=== PATIENT | male | born 1940 | race Caucasian/White ===

== ENCOUNTER 2023-08-03 03:40 | Inpatient (IN) | payer OTHER, MEDICAID ==
[~2023-08-03] VITALS: Ht 157.5 cm; Wt 65.5 kg
[2023-08-03] VITALS (11 sets, daily range): BP systolic 92–140; BP diastolic 67–85; PULSE 103–139; RESP 18–35; TEMP 97.8–99.3
[2023-08-03] MEDS ORDERED: ALBUTEROL (0.083%) 2.5MG/3ML NEB HHN STA (03:59)
[2023-08-03] MEDS ORDERED: IPRATROPIUM BROMIDE (0.02%) 0.5MG/2.5ML NEB HHN STA (03:59)
[2023-08-03 04:24] LABS: BASOPHILS % 0.9 % (0.0-2.0); EOSINOPHILS % 0.9 % (0.0-5.0); HEMATOCRIT. 39.7 % (42.0-52.0); LYMPHOCYTES % 14.3 % (20.0-50.0); MEAN CORPUSCULAR HEMOGLOBIN 29.2 pg (28.0-32.0); MEAN CORPUSCULAR HGB CONC 32.8 g/dL (31.0-37.0); MEAN PLATELET VOLUME 7.9 fl (7.4-10.4); MONOCYTES % 10.2 % (2.0-8.0); NEUTROPHILS % 73.7 % (40.0-76.0); PLATELET 292 x1000/uL (130-400); RED BLOOD CELL COUNT 4.46 mill/uL (4.7-6.1); RED CELL DISTRIBUTION WIDTH 14.7 % (11.6-14.6); WHITE BLOOD COUNT 16.9 x1000/uL (4.5-11.0)
[2023-08-03 04:34] LABS: CHLORIDE 106 mEq/L (98-107); INDEX HEMOLYSI 2 (1-3); INDEX ICTERIC 1 (1-4); INDEX LIPEMIC 1 (1-3); POTASSIUM 4.1 mEq/L (3.5-5.1); SODIUM 133 mEq/L (136-145)
[2023-08-03] MEDS ORDERED: VANCOMYCIN 1G PREMIX 200 ML IV NR ×2 (05:00→14:30)
[2023-08-03] MEDS ORDERED: PIPERACILLIN/TAZOBACTAM 3.375GM/50ML PREMIX IV NR (05:00)
[2023-08-03 05:20] LABS: INR 0.9; PROTHROMBIN TIME 10.2 sec (9.6-11.0)
[2023-08-03 05:22] LABS: ALANINE AMINOTRANSFERASE 30 IU/L (13-61); ALBUMIN 3.4 g/dL (3.4-5.0); ASPARTATE AMINOTRANSFERASE 20 IU/L (15-37); BILIRUBIN TOTAL 0.5 mg/dL (0.1-1.0); CALCIUM 8.4 mg/dL (8.5-10.1); CARBON DIOXIDE 26 mEq/L (21-32); ETHANOL BLOOD < 10 mg/dL (-10); GLUCOSE 267 mg/dL (70-105); NT PRO B-TYPE NATRIURETIC PEP 1206 pg/mL (5-125); PROTEIN TOTAL 7.6 g/dL (6.0-8.3); UREA NITROGEN BLOOD 20 mg/dL (7-21)
[2023-08-03 05:25] LABS: TROPONIN I HIGH SENSITIVITY 188 ng/L (<78)
[2023-08-03 05:34] LABS: LACTATE DEHYDROGENASE 247 IU/L (100-240)
[2023-08-03] MEDS ORDERED: ONDANSETRON HCL 4MG/2ML INJ IV PRN (12:00)
[2023-08-03] MEDS ORDERED: DEXTROSE 50% WATER 50ML SYRINGE IV PRN (12:00)
[2023-08-03] MEDS ORDERED: ACETAMINOPHEN 325MG TABLET PO PRN (12:00)
[2023-08-03] MEDS ORDERED: FUROSEMIDE 40MG/4ML VIAL IVP NR (12:00)
[2023-08-03 13:08] LABS: BG BASE EXCESS -2.9 mmol/L (-2.0-2.0); BG CARBOXYHEMOGLOBIN 0.6 % (0.5-1.5); BG DEOXYHEMOGLOBIN 0.8 % (0.0-5.0); BG HCO3 ACT 21.7 mmol/L (22.0-26.0); BG METHEMOGLOBIN 0.5 % (0.0-1.5); BG OXYGEN SATURATION 99.2 % (92.0-98.5); BG OXYHEMOGLOBIN 98.1 % (94.0-97.0); BG PCO2 37.1 mmHg (35.0-45.0); BG PH 7.384 (7.350-7.450); BG PO2 144.2 mmHg (75.0-100.0); BG SAMPLE SITE RIGHT RADIAL; BG TOTAL HEMOGLOBIN 13.9 g/dL (12.0-18.0); BG VENT MODE MASK - BIPAP
[2023-08-03] MEDS: IPRATROPIUM/ALBUTEROL 0.5-3(2.5)MG/3ML NEB HHN SCH ×2 (13:17→21:03)
[2023-08-03] MEDS: INSULIN LISPRO 100 UNITS/ML SUBCUT SCH ×3 (13:20→21:00)
[2023-08-03] MEDS: BLOOD SUGAR DIAGNOSTIC STRIP TEST SCH ×4 (13:26→21:00)
[2023-08-03] MEDS: ENOXAPARIN 40MG/0.4ML SYR SUBCUT SCH (13:27)
[2023-08-03] MEDS ORDERED: PIPERACILLIN/TAZOBACTAM 3.375 G in DEXTROSE 5% WATER 50 ML IV SCH (14:00)
[2023-08-03] MEDS ORDERED: PIPERACILLIN/TAZ 3.375G PREMIX 50 ML IV NR (15:00)
[2023-08-03] MEDS ORDERED: IPRATROPIUM/ALBUTEROL 0.5-3(2.5)MG/3ML NEB HHN PRN (16:15)
[2023-08-03 20:01] LABS: CLARITY URINE CLEAR (CLEAR); COLOR URINE YELLOW (YELLOW); GLUCOSE URINE 1+ (NEGATIVE); KETONES URINE NEGATIVE (NEGATIVE); LEUKOCYTE ESTERASE URINE NEGATIVE (NEGATIVE); NITRITE URINE NEGATIVE (NEGATIVE); OCCULT BLOOD URINE NEGATIVE (NEGATIVE); PROTEIN URINE NEGATIVE (NEGATIVE); SPECIFIC GRAVITY URINE 1.011 (1.005-1.030); UROBILINOGEN URINE 0.2 E.U./dL (0.2-1.0)
[2023-08-03 20:17] LABS: *AMPHETAMINES SCREEN URINE NEGATIVE (NEGATIVE); *BARBITURATES SCREEN URINE NEGATIVE (NEGATIVE); *BENZODIAZEPINES SCREEN URINE NEGATIVE (NEGATIVE); *COCAINE SCREEN URINE NEGATIVE (NEGATIVE); CANNABINOID URINE SCREEN NEGATIVE (NEGATIVE); ECSTASY MDMA SCREEN URINE NEGATIVE (NEGATIVE); METHADONE URINE SCREEN NEGATIVE (NEGATIVE); OPIATES URINE SCREEN NEGATIVE (NEGATIVE); PHENCYCLIDINE URINE SCREEN NEGATIVE (NEGATIVE)
[2023-08-03 20:21] LABS: BACTERIA URINE NONE SEEN; RBC URINE NONE SEEN /hpf (0-2); SQUAMOUS EPITHELIAL CELL URINE NONE SEEN /lpf (RARE/1+); WBC URINE 0-2 /hpf (0-2)
[2023-08-03 21:43] LABS: TROPONIN I HIGH SENSITIVITY 156 ng/L (<78)
[2023-08-03] MEDS ORDERED: GLIP10TA10 PO (22:04)
[2023-08-03] MEDS ORDERED: SITA100T11 MT (22:04)
[2023-08-03] MEDS ORDERED: TAMS-11 MT (22:04)
[2023-08-03] MEDS ORDERED: OMEP20CA14 MT (22:04)
[2023-08-03] MEDS ORDERED: AMLO-372 PO (22:04)
[2023-08-03] MEDS ORDERED: METF-874 MT (22:04)
[2023-08-03] MEDS ORDERED: ASPI-1406 PO (22:04)
[2023-08-03] MEDS ORDERED: CARV6.2548 MT (22:04)
[2023-08-03] MEDS: CARVEDILOL 6.25 MG TABLET PO SCH (23:19)
[2023-08-03] MEDS: AMLODIPINE 10MG TABLET PO SCH (23:19)
[2023-08-03] MEDS: PIPERACILLIN/TAZOBACTAM 3.375 G in DEXTROSE 5% WATER 50 ML IV SCH (23:19)
[2023-08-04] VITALS (17 sets, daily range): BP systolic 97–128; BP diastolic 41–67; PULSE 85–118; RESP 15–28; TEMP 98.1–99.3
[2023-08-04] MEDS: IPRATROPIUM/ALBUTEROL 0.5-3(2.5)MG/3ML NEB HHN SCH ×4 (00:34→20:31)
[2023-08-04] MEDS: PIPERACILLIN/TAZOBACTAM 3.375 G in DEXTROSE 5% WATER 50 ML IV SCH ×3 (06:59→21:01)
[2023-08-04] MEDS: INSULIN LISPRO 100 UNITS/ML SUBCUT SCH ×4 (07:00→21:00)
[2023-08-04] MEDS: BLOOD SUGAR DIAGNOSTIC STRIP TEST SCH ×4 (07:00→21:01)
[2023-08-04 07:35] LABS: BASOPHILS % 0.4 % (0.0-2.0); EOSINOPHILS % 0.2 % (0.0-5.0); HEMATOCRIT. 35.6 % (42.0-52.0); HEMOGLOBIN. 11.7 g/dL (14.0-18.0); LYMPHOCYTES % 13.6 % (20.0-50.0); MEAN CORPUSCULAR HGB CONC 32.8 g/dL (31.0-37.0); MEAN CORPUSCULAR VOLUME 88.3 fL (80.0-94.0); MONOCYTES % 12.9 % (2.0-8.0); NEUTROPHILS % 72.9 % (40.0-76.0); PLATELET 266 x1000/uL (130-400); RED BLOOD CELL COUNT 4.03 mill/uL (4.7-6.1); RED CELL DISTRIBUTION WIDTH 14.6 % (11.6-14.6); WHITE BLOOD COUNT 9.9 x1000/uL (4.5-11.0)
[2023-08-04 08:17] LABS: CALCIUM 8.3 mg/dL (8.5-10.1); CHLORIDE 104 mEq/L (98-107); INDEX HEMOLYSI 1 (1-3); INDEX ICTERIC 1 (1-4); INDEX LIPEMIC 1 (1-3); POTASSIUM 3.6 mEq/L (3.5-5.1); SODIUM 135 mEq/L (136-145)
[2023-08-04 08:22] LABS: CARBON DIOXIDE 26 mEq/L (21-32); GLUCOSE 150 mg/dL (70-105); UREA NITROGEN BLOOD 19 mg/dL (7-21)
[2023-08-04] MEDS: TAMSULOSIN HCL 0.4MG SR CAPSULE PO SCH (08:30)
[2023-08-04] MEDS: OMEPRAZOLE 20MG CAPSULE EXTENDED RELEASE PO SCH (08:30)
[2023-08-04] MEDS: ASPIRIN 81MG EC TABLET PO SCH (08:31)
[2023-08-04] MEDS: METFORMIN HCL 500MG TABLET PO SCH ×2 (08:32→17:24)
[2023-08-04] MEDS: AMLODIPINE 10MG TABLET PO SCH (08:32)
[2023-08-04] MEDS: CARVEDILOL 6.25 MG TABLET PO SCH (08:32)
[2023-08-04 09:26] LABS: BG CARBOXYHEMOGLOBIN 0.1 % (0.5-1.5); BG DEOXYHEMOGLOBIN 5.3 % (0.0-5.0); BG FRACTION INSPIRED OXYGEN 100; BG HCO3 ACT 26.4 mmol/L (22.0-26.0); BG OXYGEN SATURATION 94.7 % (92.0-98.5); BG OXYHEMOGLOBIN 94.6 % (94.0-97.0); BG PCO2 40.7 mmHg (35.0-45.0); BG SAMPLE SITE RIGHT RADIAL; BG TOTAL HEMOGLOBIN 12.7 g/dL (12.0-18.0); BG VENT MODE MASK - NRB
[2023-08-04] MEDS: DOXYCYCLINE 100 MG in DEXT 5% WATER 100 ML IV SCH ×2 (11:57→21:09)
[2023-08-04] MEDS: ENOXAPARIN 40MG/0.4ML SYR SUBCUT SCH (12:27)
[2023-08-04] MEDS ORDERED: FUROSEMIDE 40MG/4ML VIAL IVP NR (12:30)
[2023-08-05] VITALS (17 sets, daily range): BP systolic 109–133; BP diastolic 19–68; PULSE 80–104; RESP 15–25; TEMP 97.2–99.3; O2SAT 93–97
[2023-08-05] MEDS: IPRATROPIUM/ALBUTEROL 0.5-3(2.5)MG/3ML NEB HHN SCH ×4 (02:14→20:21)
[2023-08-05] MEDS: PIPERACILLIN/TAZOBACTAM 3.375 G in DEXTROSE 5% WATER 50 ML IV SCH ×3 (05:54→21:20)
[2023-08-05] MEDS: BLOOD SUGAR DIAGNOSTIC STRIP TEST SCH ×4 (06:03→20:25)
[2023-08-05 07:46] LABS: BASOPHILS % 0.1 % (0.0-2.0); EOSINOPHILS % 1.3 % (0.0-5.0); HEMATOCRIT. 32.6 % (42.0-52.0); HEMOGLOBIN. 11.4 g/dL (14.0-18.0); LYMPHOCYTES % 11.9 % (20.0-50.0); MEAN CORPUSCULAR HEMOGLOBIN 30.8 pg (28.0-32.0); MEAN CORPUSCULAR HGB CONC 35.1 g/dL (31.0-37.0); MEAN CORPUSCULAR VOLUME 87.6 fL (80.0-94.0); MONOCYTES % 14.2 % (2.0-8.0); NEUTROPHILS % 72.5 % (40.0-76.0); PLATELET 257 x1000/uL (130-400); RED BLOOD CELL COUNT 3.72 mill/uL (4.7-6.1); RED CELL DISTRIBUTION WIDTH 14.1 % (11.6-14.6); WHITE BLOOD COUNT 7.6 x1000/uL (4.5-11.0)
[2023-08-05] MEDS: INSULIN LISPRO 100 UNITS/ML SUBCUT SCH ×4 (08:00→21:21)
[2023-08-05] MEDS: METFORMIN HCL 500MG TABLET PO SCH ×2 (08:10→17:54)
[2023-08-05 08:28] LABS: CHLORIDE 100 mEq/L (98-107); INDEX HEMOLYSI 1 (1-3); INDEX ICTERIC 1 (1-4); INDEX LIPEMIC 1 (1-3); POTASSIUM 3.2 mEq/L (3.5-5.1); SODIUM 133 mEq/L (136-145)
[2023-08-05 08:39] LABS: CALCIUM 8.1 mg/dL (8.5-10.1); CARBON DIOXIDE 26 mEq/L (21-32); CREATININE 0.8 mg/dL (0.6-1.3); GLUCOSE 117 mg/dL (70-105); UREA NITROGEN BLOOD 15 mg/dL (7-21)
[2023-08-05] MEDS: ASPIRIN 81MG EC TABLET PO SCH (09:41)
[2023-08-05] MEDS: TAMSULOSIN HCL 0.4MG SR CAPSULE PO SCH (09:41)
[2023-08-05] MEDS: OMEPRAZOLE 20MG CAPSULE EXTENDED RELEASE PO SCH (09:41)
[2023-08-05] MEDS: AMLODIPINE 10MG TABLET PO SCH (09:41)
[2023-08-05] MEDS: DOXYCYCLINE 100 MG in DEXT 5% WATER 100 ML IV SCH ×2 (10:24→21:21)
[2023-08-05] MEDS ORDERED: POTASSIUM CHLORIDE 20MEQ TABLET SR PO NR (10:30)
[2023-08-05] MEDS: ENOXAPARIN 40MG/0.4ML SYR SUBCUT SCH (13:05)
[2023-08-05 13:12] LABS: BG BASE EXCESS 2.2 mmol/L (-2.0-2.0); BG CARBOXYHEMOGLOBIN 0.3 % (0.5-1.5); BG DEOXYHEMOGLOBIN 1.3 % (0.0-5.0); BG FRACTION INSPIRED OXYGEN 70; BG METHEMOGLOBIN 0.3 % (0.0-1.5); BG OXYGEN SATURATION 98.7 % (92.0-98.5); BG OXYHEMOGLOBIN 98.1 % (94.0-97.0); BG PCO2 42.9 mmHg (35.0-45.0); BG PH 7.417 (7.350-7.450); BG PO2 130.9 mmHg (75.0-100.0); BG SAMPLE SITE LEFT RADIAL; BG TOTAL HEMOGLOBIN 12.7 g/dL (12.0-18.0); BG VENT MODE MASK - BIPAP
[2023-08-05] MEDS: LISINOPRIL 20MG TABLET PO SCH (13:57)
[2023-08-06] VITALS (15 sets, daily range): BP systolic 80–132; BP diastolic 29–98; PULSE 76–133; RESP 13–24; TEMP 98.1–99.2; O2SAT 92
[2023-08-06] MEDS: IPRATROPIUM/ALBUTEROL 0.5-3(2.5)MG/3ML NEB HHN SCH ×5 (00:10→20:37)
[2023-08-06] MEDS ORDERED: METOPROLOL TARTRATE 25MG TABLET PO NR (05:00)
[2023-08-06 06:04] LABS: HEMATOCRIT 30.1 % (42.0-52.0); HEMOGLOBIN 10.3 g/dL (14.0-18.0); MEAN CORPUSCULAR HEMOGLOBIN 29.8 pg (28.0-32.0); MEAN CORPUSCULAR HGB CONC 34.1 g/dL (31.0-37.0); MEAN CORPUSCULAR VOLUME 87.6 fL (80.0-94.0); PLATELET 242 x1000/uL (130-400); RED BLOOD CELL COUNT 3.44 mill/uL (4.7-6.1); RED CELL DISTRIBUTION WIDTH 14.2 % (11.6-14.6)
[2023-08-06] MEDS: AMIODARONE HCL 200 MG TABLET PO SCH ×2 (06:04→21:20)
[2023-08-06] MEDS: PIPERACILLIN/TAZOBACTAM 3.375 G in DEXTROSE 5% WATER 50 ML IV SCH ×3 (06:04→21:19)
[2023-08-06 06:22] LABS: CHLORIDE 100 mEq/L (98-107); INDEX HEMOLYSI 1 (1-3); INDEX ICTERIC 1 (1-4); INDEX LIPEMIC 1 (1-3); POTASSIUM 3.5 mEq/L (3.5-5.1); SODIUM 131 mEq/L (136-145)
[2023-08-06 06:34] LABS: CALCIUM 8.4 mg/dL (8.5-10.1); CARBON DIOXIDE 23 mEq/L (21-32); GLUCOSE 124 mg/dL (70-105); UREA NITROGEN BLOOD 16 mg/dL (7-21)
[2023-08-06] MEDS: INSULIN LISPRO 100 UNITS/ML SUBCUT SCH ×4 (08:00→21:20)
[2023-08-06] MEDS: METFORMIN HCL 500MG TABLET PO SCH ×2 (08:02→17:55)
[2023-08-06] MEDS: BLOOD SUGAR DIAGNOSTIC STRIP TEST SCH ×4 (08:03→21:14)
[2023-08-06] MEDS: TAMSULOSIN HCL 0.4MG SR CAPSULE PO SCH (09:00)
[2023-08-06] MEDS: LISINOPRIL 20MG TABLET PO SCH (09:00)
[2023-08-06 09:01] LABS: BG BASE EXCESS -0.9 mmol/L (-2.0-2.0); BG CARBOXYHEMOGLOBIN 0.3 % (0.5-1.5); BG DEOXYHEMOGLOBIN 3.3 % (0.0-5.0); BG FRACTION INSPIRED OXYGEN 65; BG HCO3 ACT 22.9 mmol/L (22.0-26.0); BG METHEMOGLOBIN 0.1 % (0.0-1.5); BG OXYGEN SATURATION 96.7 % (92.0-98.5); BG OXYHEMOGLOBIN 96.3 % (94.0-97.0); BG PCO2 35.2 mmHg (35.0-45.0); BG PH 7.432 (7.350-7.450); BG PO2 83.4 mmHg (75.0-100.0); BG SAMPLE SITE LEFT RADIAL; BG TOTAL HEMOGLOBIN 11.5 g/dL (12.0-18.0); BG TOTAL RESPIRATORY RATE 22 b/min; BG VENT MODE MASK - BIPAP
[2023-08-06] MEDS: OMEPRAZOLE 20MG CAPSULE EXTENDED RELEASE PO SCH (09:15)
[2023-08-06] MEDS: ASPIRIN 81MG EC TABLET PO SCH (09:16)
[2023-08-06] MEDS: DOXYCYCLINE 100 MG in DEXT 5% WATER 100 ML IV SCH ×2 (10:30→21:19)
[2023-08-06] MEDS: ENOXAPARIN 80MG/0.8ML SYR SUBCUT SCH ×2 (10:45→21:19)
[2023-08-06] MEDS ORDERED: AMIODARONE 150MG/100ML PREMIX 100 ML IV SCH (11:00)
[2023-08-06] MEDS: FUROSEMIDE 40MG/4ML VIAL IVP SCH (11:57)
[2023-08-06] MEDS: METHYLPREDNISOLONE SOD SUCC 40MG/ML (ACT-O-VIAL) IV SCH ×2 (17:55→23:51)
[2023-08-06] MEDS: FAMOTIDINE 20MG TABLET PO SCH (21:20)
[2023-08-07] VITALS (17 sets, daily range): BP systolic 94–147; BP diastolic 54–68; PULSE 85–113; RESP 13–25; TEMP 97.5–98.9; O2SAT 92–96
[2023-08-07] MEDS: IPRATROPIUM/ALBUTEROL 0.5-3(2.5)MG/3ML NEB HHN SCH ×4 (01:03→21:54)
[2023-08-07] MEDS: METHYLPREDNISOLONE SOD SUCC 40MG/ML (ACT-O-VIAL) IV SCH ×3 (05:29→21:52)
[2023-08-07] MEDS: PIPERACILLIN/TAZOBACTAM 3.375 G in DEXTROSE 5% WATER 50 ML IV SCH ×3 (05:29→21:54)
[2023-08-07] MEDS: BLOOD SUGAR DIAGNOSTIC STRIP TEST SCH ×4 (07:30→21:44)
[2023-08-07 08:03] LABS: BG BASE EXCESS 0.9 mmol/L (-2.0-2.0); BG CARBOXYHEMOGLOBIN 0.3 % (0.5-1.5); BG DEOXYHEMOGLOBIN 6.4 % (0.0-5.0); BG HCO3 ACT 25.3 mmol/L (22.0-26.0); BG METHEMOGLOBIN 0.1 % (0.0-1.5); BG OXYGEN SATURATION 93.6 % (92.0-98.5); BG OXYHEMOGLOBIN 93.2 % (94.0-97.0); BG PCO2 39.7 mmHg (35.0-45.0); BG PH 7.422 (7.350-7.450); BG PO2 67.1 mmHg (75.0-100.0); BG SAMPLE SITE RIGHT RADIAL; BG TOTAL HEMOGLOBIN 12.4 g/dL (12.0-18.0); BG VENT MODE NASAL CANNULA
[2023-08-07] MEDS: FUROSEMIDE 40MG/4ML VIAL IVP SCH (09:20)
[2023-08-07] MEDS: METFORMIN HCL 500MG TABLET PO SCH ×2 (09:20→17:40)
[2023-08-07] MEDS: AMIODARONE HCL 200 MG TABLET PO SCH ×2 (09:20→21:53)
[2023-08-07] MEDS: TAMSULOSIN HCL 0.4MG SR CAPSULE PO SCH (09:21)
[2023-08-07] MEDS: FAMOTIDINE 20MG TABLET PO SCH ×2 (09:21→21:53)
[2023-08-07] MEDS: ENOXAPARIN 80MG/0.8ML SYR SUBCUT SCH ×2 (09:25→21:00)
[2023-08-07] MEDS: INSULIN LISPRO 100 UNITS/ML SUBCUT SCH ×4 (09:26→21:52)
[2023-08-07] MEDS: ASPIRIN 81MG EC TABLET PO SCH (09:30)
[2023-08-07] MEDS: DOXYCYCLINE 100 MG in DEXT 5% WATER 100 ML IV SCH ×2 (11:47→21:54)
[2023-08-07] MEDS: LISINOPRIL 5MG TABLET PO SCH (11:47)
[2023-08-08] VITALS (12 sets, daily range): BP systolic 109–138; BP diastolic 43–80; PULSE 86–110; RESP 7–27; TEMP 98.2–99; O2SAT 91
[2023-08-08] MEDS: IPRATROPIUM/ALBUTEROL 0.5-3(2.5)MG/3ML NEB HHN SCH ×3 (01:40→20:22)
[2023-08-08] MEDS: METHYLPREDNISOLONE SOD SUCC 40MG/ML (ACT-O-VIAL) IV SCH (05:56)
[2023-08-08] MEDS: METFORMIN HCL 500MG TABLET PO SCH ×2 (08:00→17:20)
[2023-08-08] MEDS: INSULIN LISPRO 100 UNITS/ML SUBCUT SCH ×4 (08:00→21:00)
[2023-08-08] MEDS: BLOOD SUGAR DIAGNOSTIC STRIP TEST SCH ×3 (08:08→21:36)
[2023-08-08] MEDS: ASPIRIN 81MG EC TABLET PO SCH ×2 (08:09→09:14)
[2023-08-08] MEDS: FUROSEMIDE 40MG/4ML VIAL IVP SCH ×3 (08:09→17:15)
[2023-08-08] MEDS: LISINOPRIL 5MG TABLET PO SCH (08:10)
[2023-08-08] MEDS: TAMSULOSIN HCL 0.4MG SR CAPSULE PO SCH (08:10)
[2023-08-08] MEDS: FAMOTIDINE 20MG TABLET PO SCH ×2 (08:10→21:39)
[2023-08-08] MEDS: AMIODARONE HCL 200 MG TABLET PO SCH ×2 (08:10→21:39)
[2023-08-08] MEDS: ENOXAPARIN 80MG/0.8ML SYR SUBCUT SCH (08:11)
[2023-08-08] MEDS: DOXYCYCLINE 100 MG in DEXT 5% WATER 100 ML IV SCH (09:14)
[2023-08-08] MEDS ORDERED: IODIXANOL 320MG/ML 100 ML BOTTLE IV ONE (10:13)
[2023-08-08] MEDS ORDERED: HEPARIN 1000 UNITS/ML 10ML ONE (10:13)
[2023-08-08] MEDS ORDERED: VERAPAMIL HCL 2.5 MG/1 ML 2ML VIAL IV ONE (10:13)
[2023-08-08] MEDS ORDERED: LIDOCAINE HCL 1% 10 MG/ML 10ML VIAL ONE (10:14)
[2023-08-08] MEDS ORDERED: FENTANYL CITRATE/PF 50MCG/ML 2ML VIAL ONE (10:50)
[2023-08-08] MEDS ORDERED: DIPHENHYDRAMINE 50MG/ML VIAL ONE (10:51)
[2023-08-08] MEDS ORDERED: MIDAZOLAM HCL 2 MG/2 ML VIAL ONE (10:51)
[2023-08-08] MEDS ORDERED: LIDOCAINE HCL 1% 20ML VIAL (Pyxis) INJ ONE (10:55)
[2023-08-08] MEDS ORDERED: AMIODARONE HCL 50MG/ML 3ML VIAL IV ONE (10:55)
[2023-08-08] MEDS ORDERED: CLOPIDOGREL 75MG TABLET ONE ×2 (11:43→11:52)
[2023-08-08] MEDS ORDERED: ACETAMINOPHEN 325MG TABLET PO PRN (12:30)
[2023-08-08] MEDS ORDERED: ATROPINE SULFATE 1MG/10ML SYR IV PRN (12:30)
[2023-08-08 16:35] LABS: CHLORIDE 103 mEq/L (98-107); INDEX HEMOLYSI 1 (1-3); INDEX ICTERIC 1 (1-4); INDEX LIPEMIC 1 (1-3); POTASSIUM 3.8 mEq/L (3.5-5.1); SODIUM 135 mEq/L (136-145)
[2023-08-08 16:41] LABS: CALCIUM 8.6 mg/dL (8.5-10.1); CARBON DIOXIDE 22 mEq/L (21-32); CREATININE 0.8 mg/dL (0.6-1.3); GLUCOSE 395 mg/dL (70-105); UREA NITROGEN BLOOD 20 mg/dL (7-21)
[2023-08-09] VITALS (7 sets, daily range): BP systolic 119–137; BP diastolic 65–89; PULSE 82–103; RESP 11–25; TEMP 98–99
[2023-08-09 06:47] LABS: BASOPHILS % 0.1 % (0.0-2.0); HEMATOCRIT. 31.4 % (42.0-52.0); HEMOGLOBIN. 10.6 g/dL (14.0-18.0); LYMPHOCYTES % 7.1 % (20.0-50.0); MEAN CORPUSCULAR HEMOGLOBIN 29.8 pg (28.0-32.0); MEAN CORPUSCULAR HGB CONC 33.8 g/dL (31.0-37.0); MEAN CORPUSCULAR VOLUME 88.1 fL (80.0-94.0); MEAN PLATELET VOLUME 7.6 fl (7.4-10.4); NEUTROPHILS % 83.8 % (40.0-76.0); PLATELET 339 x1000/uL (130-400); RED BLOOD CELL COUNT 3.56 mill/uL (4.7-6.1); RED CELL DISTRIBUTION WIDTH 14.2 % (11.6-14.6); WHITE BLOOD COUNT 11.6 x1000/uL (4.5-11.0)
[2023-08-09] MEDS: BLOOD SUGAR DIAGNOSTIC STRIP TEST SCH ×4 (07:09→21:45)
[2023-08-09 07:14] LABS: CALCIUM 8.3 mg/dL (8.5-10.1); CHLORIDE 104 mEq/L (98-107); INDEX HEMOLYSI 1 (1-3); INDEX ICTERIC 1 (1-4); INDEX LIPEMIC 1 (1-3); SODIUM 137 mEq/L (136-145)
[2023-08-09 07:20] LABS: CARBON DIOXIDE 30 mEq/L (21-32); CREATININE 0.8 mg/dL (0.6-1.3); GLUCOSE 210 mg/dL (70-105); UREA NITROGEN BLOOD 22 mg/dL (7-21)
[2023-08-09 07:28] LABS: BG BASE EXCESS 5.1 mmol/L (-2.0-2.0); BG CARBOXYHEMOGLOBIN 0.3 % (0.5-1.5); BG HCO3 ACT 29.3 mmol/L (22.0-26.0); BG METHEMOGLOBIN 0.3 % (0.0-1.5); BG OXYGEN SATURATION 82.9 % (92.0-98.5); BG OXYHEMOGLOBIN 82.4 % (94.0-97.0); BG PCO2 41.9 mmHg (35.0-45.0); BG PH 7.463 (7.350-7.450); BG PO2 45.7 mmHg (75.0-100.0); BG SAMPLE SITE RIGHT BRACHIAL; BG TOTAL HEMOGLOBIN 12.2 g/dL (12.0-18.0); BG VENT MODE ROOM AIR
[2023-08-09] MEDS ORDERED: ENOXAPARIN 80MG/0.8ML SYR SUBCUT SCH (09:00)
[2023-08-09] MEDS: LISINOPRIL 5MG TABLET PO SCH (09:10)
[2023-08-09] MEDS: CLOPIDOGREL 75MG TABLET PO SCH (09:10)
[2023-08-09] MEDS: AMIODARONE HCL 200 MG TABLET PO SCH ×2 (09:10→21:56)
[2023-08-09] MEDS: FAMOTIDINE 20MG TABLET PO SCH ×2 (09:11→21:56)
[2023-08-09] MEDS: TAMSULOSIN HCL 0.4MG SR CAPSULE PO SCH (09:11)
[2023-08-09] MEDS: ENOXAPARIN 60MG/0.6ML SYR SUBCUT SCH ×2 (09:12→21:56)
[2023-08-09] MEDS: METFORMIN HCL 500MG TABLET PO SCH ×2 (09:14→17:33)
[2023-08-09] MEDS: FUROSEMIDE 40MG/4ML VIAL IVP SCH ×2 (09:15→17:33)
[2023-08-09] MEDS: INSULIN LISPRO 100 UNITS/ML SUBCUT SCH ×4 (09:24→21:58)
[2023-08-09] MEDS: CARVEDILOL 3.125 MG TABLET PO SCH ×2 (12:27→21:56)
[2023-08-10] VITALS (7 sets, daily range): BP systolic 123–144; BP diastolic 56–97; PULSE 67–101; RESP 16–20; TEMP 97.3–98.3; O2SAT 98
[2023-08-10] MEDS: BLOOD SUGAR DIAGNOSTIC STRIP TEST SCH ×3 (06:23→17:41)
[2023-08-10] MEDS: FUROSEMIDE 40MG/4ML VIAL IVP SCH ×2 (06:30→17:54)
[2023-08-10] MEDS: INSULIN LISPRO 100 UNITS/ML SUBCUT SCH ×3 (07:20→18:07)
[2023-08-10] MEDS: METFORMIN HCL 500MG TABLET PO SCH ×2 (08:44→17:55)
[2023-08-10] MEDS: LISINOPRIL 5MG TABLET PO SCH (08:45)
[2023-08-10] MEDS: ASPIRIN 81MG EC TABLET PO SCH (08:45)
[2023-08-10] MEDS: FAMOTIDINE 20MG TABLET PO SCH (08:45)
[2023-08-10] MEDS: TAMSULOSIN HCL 0.4MG SR CAPSULE PO SCH (08:45)
[2023-08-10] MEDS: AMIODARONE HCL 200 MG TABLET PO SCH (08:45)
[2023-08-10] MEDS: ENOXAPARIN 60MG/0.6ML SYR SUBCUT SCH (08:46)
[2023-08-10] MEDS: CLOPIDOGREL 75MG TABLET PO SCH (08:46)
[2023-08-10] MEDS: CARVEDILOL 3.125 MG TABLET PO SCH (08:46)
[2023-08-10] MEDS ORDERED: CARVEDILOL 6.25 MG TABLET PO SCH (21:00)
== END 2023-08-10 18:00 | disposition home or self-care (01) | DRG 246 ==
LOC: ER 03:48 → MICUSO 05:58 → EDBEDREQ 06:07 → EDBEDREQTM 06:07 → 5EST 16:47 → 3WST 08-08 11:45
PROVIDERS: ADMIT Internal Medicine; ATTEND Internal Medicine
PROC: 5A09457 Assistance with Respiratory Ventilation, 24-96 Consecutive Hours, Continuous Positive Airway Pressure (ICD-10-PCS; principal; 2023-08-03)
PROC: 027034Z Dilation of Coronary Artery, One Artery with Drug-eluting Intraluminal Device, Percutaneous Approach (ICD-10-PCS; 2023-08-08)
PROC: 4A023N7 Measurement of Cardiac Sampling and Pressure, Left Heart, Percutaneous Approach (ICD-10-PCS; 2023-08-08)
PROC: B2111ZZ Fluoroscopy of Multiple Coronary Arteries using Low Osmolar Contrast (ICD-10-PCS; 2023-08-08)
PROC: 5A09357 Assistance with Respiratory Ventilation, Less than 24 Consecutive Hours, Continuous Positive Airway Pressure (ICD-10-PCS; 2023-08-10)
DX: I11.0 Hypertensive heart disease with heart failure (principal); I21.A1 Myocardial infarction type 2; I50.23 Acute on chronic systolic (congestive) heart failure; J18.9 Pneumonia, unspecified organism; J96.01 Acute respiratory failure with hypoxia; E87.1 Hypo-osmolality and hyponatremia; J44.0 Chronic obstructive pulmonary disease with (acute) lower respiratory infection; I48.20 Chronic atrial fibrillation, unspecified; J44.1 Chronic obstructive pulmonary disease with (acute) exacerbation; I25.10 Atherosclerotic heart disease of native coronary artery without angina pectoris; I42.8 Other cardiomyopathies; D64.9 Anemia, unspecified; E11.65 Type 2 diabetes mellitus with hyperglycemia; E83.51 Hypocalcemia; I44.7 Left bundle-branch block, unspecified; I48.91 Unspecified atrial fibrillation; N40.0 Benign prostatic hyperplasia without lower urinary tract symptoms; Z79.02 Long term (current) use of antithrombotics/antiplatelets; Z79.899 Other long term (current) drug therapy
CPT/HCPCS: 36415; 36600; 71045; 71250; 76770; 80048; 80053; 80305; 80320; 81003; 82375; 82805; 82962; 83036; 83605; 83615; 83880; 84145; 84484; 85025; 85027; 85347; 86850; 86900; 87426; 93005; 93306; 94640; 94660; 97162; 97165; 99285; C9803; J0282; J1200; J1644; J1650; J1815; J1940; J2250; J2543; J2920; J3010; J3370; J3490; J7060; Q9967; G0480